=== PATIENT | male | born 1980 | race Caucasian/White ===

== ENCOUNTER 2022-08-13 17:21 | Emergency (ER) | payer BC, SELFPAY ==
[2022-08-13 17:26] VITALS: BP 116/72; PULSE 62; RESP 18; TEMP 36.9; O2SAT 99
--- NOTE | 2022-08-13 17:33 | ED.GENADUL_ITS ---
Discharge Plan Disposition Patient Disposition: Home Condition: Improving Discharge Details Chief Complaint: RespSymp Clinical Impression: Acute viral syndrome Primary Care Provider: Junaid Paul ED Provider: Dinh Gomez Discharge Instructions Instructions: Viral Syndrome (ED) Additional Instructions: Tylenol and/or ibuprofen as needed for aches, pains or fever. Continue to push fluids with small, liberal sips to maintain hydration. Home to rest this evening. Your viral testing including COVID and influenza was negative today. Medical Decision Making 42-year-old male presents complaining of 1-1/2 days of scratchy throat, mild malaise and sinus pressure. Positive sick contact with influenza A in his daughter. He is well-appearing, afebrile and oxygenating normally. Rapid viral swab obtained: Negative influenza and COVID testing. Discussed with patient home management and surveillance. He is stable for discharge with viral syndrome. HPI General Mode of arrival: ambulatory . Date/Time Provider Initiated Documentation: 08/13/22 17:29 . Limitations to Documentation: no limitations . Information obtained by: patient . History of Present Illness 42 year old M pr esents to the emergency department with the chief complaint of Throat scratchy throat, sinus congestion, described as moderate, and is localized to the head and mouth. Patient reports no radiation. Patient started experiencing this day(s) and it has been constant. No relieving factors improve symptom(s), No exacerbating factors reported . Patient notes denies chest pain, cough and syncope. Patient did receive the following treatments prior to arrival, none General Stated Complaint: RespSymp VINNIE: 4 Review of Systems Narrative: 6 systems reviewed and otherwise negative PFSH All Active Problems (Updated 08/13/22 @ 17:50 by Dinh Gomez MD) Acute viral syndrome (Acute) Social History Smoking/Tobacco Use Status: Never Smoking risk assessment performed?: Yes Alcohol Intake: never Drug use: Never Substance use type: does not use Do you feel safe at home: Yes Do you feel safe in your relationship?: Yes Exam Narrative Exam Narrative: GEN: awake, alert, oriented 3. Pleasant, well groomed, interactive. HEAD: Normocephalic, atraumatic ENT: Mucous membranes moist, oropharynx slightly erythematous both of without swelling or exudate, tympanic membranes visualized and clear bilaterally, External ear exam unremarkable EYES: PERRL, EOMI NECK: Full ROM, no MITCH, no menigismus CHEST/RESP: Nontender, clear to auscultation bilateral, no wheeze/rhonchi/rales CARDIOVASCULAR: RRR, no murmur, rub leonard. 2+ Rad pulse bilateral ABDOMEN: Soft, nontender, no mass. +Bowel sounds EXT: Full ROM, no edema, no rash Neuro: Grossly normal neurologic exam, conversant, interactive. Psych: Speech fluent, thoughts congruent, affect normal Course Vital Signs Vital signs: Vital Signs Temperature 36.9 C 08/13/22 17:26 Pulse 62 08/13/22 17:26 Respiratory Rate 18 08/13/22 17:26 Blood Pressure 116/72 08/13/22 17:26 Pulse Oximetry 99 08/13/22 17:26 Temperature 36.9 C 08/13/22 17:26 Temperature Source Tympanic 08/13/22 17:26 Pulse 62 08/13/22 17:26 Respiratory Rate 18 08/13/22 17:26 Respiratory Effort 08/13/22 17:29 Respiratory Depth Normal 08/13/22 17:29 Blood Pressure 116/72 08/13/22 17:26 Blood Pressure Position Supine 08/13/22 17:26 Pulse Oximetry 99 08/13/22 17:26 Oxygen Delivery Method Room Air 08/13/22 17:26 Oxygen Flow Rate 0 08/13/22 17:26 Pain Level 3 08/13/22 17:26
== END 2022-08-13 17:59 | disposition home or self-care (01) ==
PROVIDERS: Emergency Provider Emergency Medicine; PCP Physician Assistant Medical
DX: B34.9 Viral infection, unspecified (principal)
CPT/HCPCS: 99281; 99282

== ENCOUNTER 2024-09-01 00:15 | Emergency (ER) | payer MEDICAID, SELFPAY ==
[2024-09-01] VITALS (22 sets, daily range): BP systolic 116–137; BP diastolic 80–98; PULSE 59–84; RESP 8–23; TEMP 36.5; O2SAT 96–98
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
[2024-09-01] MEDS: Ketorolac 30 MG/ML VIAL IVP (00:44)
[2024-09-01] MEDS: Omnipaque 350 MG/ML 100 ML BTL IJ (01:12)
[2024-09-01] MEDS: Normal Saline - Diluent 50 ML VIAL IJ (01:12)
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
[2024-09-01] MEDS: Orphenadrine 60 MG/2 ML VIAL IVP (03:10)
[2024-09-01] MEDS: Normal Saline 50 ML 200 ML (03:13)
== END 2024-09-01 03:14 | disposition home or self-care (01) ==
PROVIDERS: Emergency Provider Emergency Medicine; PCP Physician Assistant Medical
DX: M54.6 Pain in thoracic spine (principal); V48.3XXA Unspecified car occupant injured in noncollision transport accident in nontraffic accident, initial encounter
CPT/HCPCS: 71275; 96374; 96375; 99285; J2360; 99284; J1885; J3490

== ENCOUNTER 2024-10-25 01:47 | Emergency (ER) | payer MEDICAID, SELFPAY ==
[2024-10-25 01:55] VITALS: BP 127/90; PULSE 78; RESP 18; TEMP 36.3; O2SAT 99
--- NOTE | 2024-10-25 02:00 | DI.RAD_ITS ---
Exam(s) XR CHEST 2V PA LATERAL EXAM: XR CHEST 2V PA LATERAL CLINICAL HISTORY: cough. TECHNIQUE: 2D digital imaging was performed. COMPARISON: No exams were available for comparison FINDINGS: 2 views: Heart size is normal. The mediastinum is not widened. Lungs are clear. No infiltrates nor pleural effusions. The lateral view there is a small calcified granuloma noted posteriorly in 1 of the lower lobes. Thi s is not able be seen on the frontal view. IMPRESSION: No acute pulmonary findings. DATA REPOSITORY: RADIATION DOSE DELIVERED:
--- NOTE | 2024-10-25 02:22 | ED.GENADUL_ITS ---
Discharge Plan Disposition Patient Disposition: Home Condition: Improving Discharge Details Clinical Impression: Chronic bronchitis, simple Primary Care Provider: Junaid Paul ED Provider: Dimitrios Mclean Home Meds and New Rx's Prescriptions: New azithromycin [Zithromax] 250 mg tablet 250 mg PO DAILY 4 Days Qty: 4 0RF Rx Instructions: start on day 2 of therapy benzonatate 200 mg capsule 200 mg PO TID PRNQty: 20 0RF albuterol sulfate 90 mcg/actuation HFA aerosol inhaler 2 puff inhalation 6XD PRN (Reason: shortness of breath or wheezing) Qty: 8.5 0RF No Action methylprednisolone 4 mg tablets,dose pack 4 mg PO DAILY Patient Comments: TAKE BY MOUTH DIRECTED ON INSIDE OF PACKAGE ibuprofen 600 mg tablet 600 mg PO TID PRN (Reason: pain) Qty: 15 0RF Discharge Instructions Instructions: Chronic Bronchitis (DC) Additional Instructions: Take 1 Zithromax tablet every day, beginning tomorrow (Thursday), for the next 4 days. You have already be given a dose of this medication today. You can take one 200 mg Tessalon capsule every 8 hours as needed for symptoms of cough suppression. You can take 1 to 2 puffs on the albuterol inhaler prescribed, every 4-6 hours as needed for symptoms of cough control. You should finish the remaining steroids in the blister pack that was prescribed to you. Follow-up with regular primary care doctor for reevaluation and further management, especially if your cough is not improving with this care plan. You can always return to the ER for any new concerns or sudden changes in your health which you feel require emergency medical attention. Discharge Data Discharge Physician: Dimitrios Mclean [facility] General Date/Time Provider Initiated Documentation: 10/25/24 01:50 . HPI Narrative: The patient is a 44-year-old male, with no contributory past medical history, who presents the emergency department this evening complaining of ongoing bronchospastic cough which has been increasingly worsening over the last 2 weeks. The patient states that he initially developed the symptoms from his son and his girlfriend, who both tested positive for influenza A. He completed a Tamiflu pack that was given to him by his primary care doctor and began taking an oral methyl prednisone burst pack which was given to him by another physician. Neither has seemed to improve his symptoms. The patient reports that he has an increasing bronchospastic cough which is causing him at times to have coughing fits that lead him to vomiting. He also reports that he is developing some generalized chest discomfort associated with the coughing events. He is concerned that he has pneumonia and would like to get a chest x- ray to be evaluated for this. Related Data Home Medications ?Medication ?Instructions ?Recorded ?Confirmed ibuprofen 600 mg tablet 600 mg PO TID PRN pain #15 tabs 09/01/24 10/25/24 albuterol sulfate 90 mcg/actuation 2 puff inhalation 6XD PRN 10/25/24 aerosol inhaler shortness of breath or wheezing #8.5 grams azithromycin 250 mg tablet 250 mg PO DAILY 4 days #4 tabs 10/25/24 (Zithromax) benzonatate 200 mg capsule 200 mg PO TID PRN #20 caps 10/25/24 methylprednisolone 4 mg tablets in 4 mg PO DAILY 10/25/24 10/25/24 a dose pack Previous Rx's ?Medication ?Instructions ?Recorded ibuprofen 600 mg tablet 600 mg PO TID PRN pain #15 tabs 09/01/24 albuterol sulfate 90 mcg/actuation 2 puff inhalation 6XD PRN 10/25/24 aerosol inhaler shortness of breath or wheezing #8.5 grams azithromycin 250 mg tablet 250 mg PO DAILY 4 days #4 tabs 10/25/24 (Zithromax) benzonatate 200 mg capsule 200 mg PO TID PRN #20 caps 10/25/24 Allergies Allergy/AdvReac Type Severity Reaction Status Date / Time No Known Allergies Allergy Unverified 10/25/24 02:00 General Stated Complaint: RespSymp VINNIE: 3 Exam Const General: cooperative and healthy appearing Nutritional Appearance: average body habitus Orientation: alert, awake and oriented x3 Resp Effort & Inspection: normal respiratory effort and able to speak in complete sentences Auscultation: clear to auscultation bilaterally Other: Frequent bronchospastic coughing fits Cardio Jugular venous pressure: no JVD Rate: regular rate Rhythm: regular rhythm Heart Sounds: S1 normal and S2 normal Skin General skin exam: no rashes or lesions noted, turgor normal and no mottling Neuro General: moves all extremities, no focal motor deficits and CN's II-XI intact bilaterally Extrem General: no clubbing, no cyanosis and no edema Course Vital Signs Vital signs: Vital Signs Temperature 36.3 C L 10/25/24 01:55 Pulse 78 10/25/24 01:55 Respiratory Rate 18 10/25/24 01:55 Blood Pressure 127/90 10/25/24 01:55 Pulse Oximetry 99 10/25/24 01:55 Temperature 36.3 C L 10/25/24 01:55 Temperature Source Temporal Artery Scan 10/25/24 01:55 Pulse 78 10/25/24 01:55 Respiratory Rate 18 10/25/24 01:55 Respiratory Effort Normal, Non-Labored 10/25/24 02:02 Respiratory Depth Normal 10/25/24 02:02 Blood Pressure 127/90 10/25/24 01:55 Blood Pressure Position Sitting 10/25/24 01:55 Pulse Oximetry 99 10/25/24 01:55 Oxygen Delivery Method Room Air 10/25/24 01:55 Oxygen Flow Rate 0 10/25/24 01:55 Medical Decision Making The patient was seen and examined. He does have relatively significant bronchospastic coughing fits here in the emergency room. The patient will have a combined respiratory panel sent, in addition to a two-view chest x-ray obtained to exclude the possibility of organized airspace disease such as a pneumonia. The patient be given a DuoNeb treatment and Tessalon here in the emergency room to help improve his symptoms. I do not anticipate this patient require admission to the hospital for ongoing management but could likely benefit from bronchodilator therapy at home and a drying agent for his lungs. He may or may not require oral antibiotics depending on the results of the chest x-ray. 0400 - Despite having no obvious pneumonia on his CXR, the patient does continue to have significant bronchospastic coughing almost 2 weeks after the onset of his symptoms. I think the patient would most likely benefit from a oral Zithromax pack, just to keep bacterial floral counts down in his lungs. Also recommend that he use an albuterol based bronchodilator in addition to Tessalon Perles. I did encourage him to finish the remainder of the steroids that were given to him, as he has only 2 days left. Primary care follow-up recommended Quality:SDOH Health Related Social Needs: No Data to Display PFSH All Active Problems (Updated 10/25/24 @ 03:58 by Dimitrios Mclean MD) Chronic bronchitis, simple (Acute) Medical History No significant past medical history Surgical History No significant past surgical history Social History Smoking/Tobacco Use Status: Never Smoking risk assessment performed?: Yes Alcohol Intake: never Drug use: Never Substance use type: does not use Housing: apartment Do you feel safe at home: Yes Do you feel safe in your relationship?: Yes
[2024-10-25] MEDS: Benzonatate 100 MG CAP PO (02:30)
[2024-10-25] MEDS: Albuterol/Ipratropium 3 ML UPD VIAL UPD (02:30)
[2024-10-25 03:10] VITALS: BP 128/88; PULSE 82; RESP 16; O2SAT 98
[2024-10-25 03:16] LABS: COVID-19 PCR Negative (Negative); Influenza A PCR Negative (Negative); Influenza B PCR Negative (Negative); RSV PCR Negative (Negative)
--- NOTE | 2024-10-25 03:19 | DI.VRAD_ITS ---
PROCEDURE INFORMATION: Exam: XR Chest Exam date and time: 10/25/2024 2:35 AM Age: 44 years old Clinical indication: Cough TECHNIQUE: Imaging protocol: Radiologic exam of the chest. Views: 2 views. COMPARISON: CT CHEST PE CTA 09/01/2024 12:52 AM FINDINGS: Lungs: Unremarkable. No consolidation. Pleural spaces: Unremarkable. No pleural effusion. No pneumothorax. Heart/Mediastinum: Unremarkable. No cardiomegaly. Bones/joints: Unremarkable. IMPRESSION: No acute findings. Dictated and Authenticated by: Dwayne Nance MD. Orderin Caridad Plunkett MD
[2024-10-25 03:23] LABS: Source Nasopharynx
[2024-10-25] MEDS: Azithromycin 250 MG TAB 500 MG PO (03:44)
[2024-10-25 04:34] VITALS: BP 120/84; PULSE 76; RESP 16; O2SAT 99
== END 2024-10-25 04:35 | disposition home or self-care (01) ==
PROVIDERS: Emergency Provider Emergency Medicine Emergency Medical Services; PCP Physician Assistant Medical
DX: J41.0 Simple chronic bronchitis (principal)
CPT/HCPCS: 87637; 94640; 99283; 71046; J7620